=== PATIENT | female | born 1990 | race Caucasian/White ===

== ENCOUNTER 2022-03-05 09:16 | Outpatient (CLI) | payer OTHER, SELFPAY ==
[2022-03-05 15:44] LABS: Chloride* 103 mmol/L (96-114); Potassium* 4.6 mmol/L (3.6-5.1); Sodium* 137 mmol/L (135-149)
[2022-03-05 15:46] LABS: Carbon Dioxide* 26 mmol/L (20-32); Cholesterol* 235 mg/dL (90-199); Creatinine* 0.8 mg/dL (0.5-1.5); Estimated Glomerular Filt Rate 100 ml/min
[2022-03-05 15:47] LABS: Blood Urea Nitrogen* 12 mg/dL (5-24); Calcium* 9.4 mg/dL (8.4-10.6); Glucose* 98 mg/dL (60-115); HDL Cholesterol* 50 mg/dL (>=50); LDL Cholesterol Calculated 161 mg/dL (<100); Triglycerides* 118 mg/dL (40-149)
[2022-03-05 20:54] LABS: Free T4 Free Thyroxine* 0.92 ng/dL (0.70-1.85)
== END 2022-03-05 09:17 | disposition home or self-care (01) ==
PROVIDERS: PCP Emergency Medicine; Visit Provider Emergency Medicine
DX: Z01.419 Encounter for gynecological examination (general) (routine) without abnormal findings (principal); E03.9 Hypothyroidism, unspecified; E78.5 Hyperlipidemia, unspecified; F41.9 Anxiety disorder, unspecified; R20.2 Paresthesia of skin
CPT/HCPCS: 80048; 80061; 84439; 84443

== ENCOUNTER 2022-05-14 13:28 | Outpatient (CLI) | payer OTHER, SELFPAY ==
[2022-05-14 23:18] LABS: Vitamin B12* 445 pg/mL (243-894)
== END 2022-05-14 13:29 | disposition home or self-care (01) ==
PROVIDERS: PCP Emergency Medicine; Visit Provider Emergency Medicine
DX: E03.9 Hypothyroidism, unspecified (principal); R20.2 Paresthesia of skin
CPT/HCPCS: 82607; 84443

== ENCOUNTER 2023-01-01 09:58 | Outpatient (CLI) | payer OTHER, SELFPAY | END 2023-01-01 09:59 | disposition home or self-care (01) | LOC: NFLDREF 01-02 02:55 | PROVIDERS: PCP Emergency Medicine; Referring Provider Emergency Medicine; Visit Provider Physician Assistant | DX: Z31.69 Encounter for other general counseling and advice on procreation (principal) | CPT/HCPCS: 82670; 83001; 83498; 83520; 83525; 84146; 84270; 84402; 84403; 84443 ==

== ENCOUNTER 2023-01-09 11:07 | Outpatient (CLI) | payer OTHER, SELFPAY | END 2023-01-09 11:08 | disposition home or self-care (01) | LOC: LKVREF 11:09 | PROVIDERS: PCP Emergency Medicine; Visit Provider Physician Assistant | DX: Z31.69 Encounter for other general counseling and advice on procreation (principal) | CPT/HCPCS: 84144; 84703 ==

== ENCOUNTER 2023-01-18 09:15 | Outpatient (CLI) | payer OTHER, SELFPAY | END 2023-01-18 09:16 | disposition home or self-care (01) | LOC: NFLDREF 01-23 10:57 | PROVIDERS: PCP Emergency Medicine; Referring Provider Emergency Medicine; Visit Provider Physician Assistant | DX: Z31.69 Encounter for other general counseling and advice on procreation (principal) | CPT/HCPCS: 84144 ==

== ENCOUNTER 2024-03-09 11:38 | Outpatient (CLI) | payer OTHER, SELFPAY | END 2024-03-09 11:39 | disposition home or self-care (01) | LOC: NFLDREF 03-10 19:07 | PROVIDERS: PCP Emergency Medicine; Referring Provider Emergency Medicine; Visit Provider Emergency Medicine | DX: R73.03 Prediabetes (principal); E78.5 Hyperlipidemia, unspecified; E03.9 Hypothyroidism, unspecified; F41.9 Anxiety disorder, unspecified | CPT/HCPCS: 80048; 80061; 84443 ==

== ENCOUNTER 2024-04-29 09:07 | Outpatient (CLI) | payer OTHER, SELFPAY | END 2024-04-29 09:08 | disposition home or self-care (01) | PROVIDERS: PCP Emergency Medicine; Visit Provider Emergency Medicine | DX: E66.9 Obesity, unspecified (principal) | CPT/HCPCS: 80076 ==